=== PATIENT | male | born 1985 | race Caucasian/White ===

== ENCOUNTER 2018-01-27 16:59 | Outpatient (CLI) | payer BC | END 2018-01-27 17:00 | disposition home or self-care (01) | LOC: BICRAD 16:59 | PROVIDERS: ATTEND Family Medicine | DX: R53.83 Other fatigue (principal); R10.30 Lower abdominal pain, unspecified; R30.0 Dysuria | CPT/HCPCS: 71046; 72100; 74018 ==

== ENCOUNTER 2018-02-18 13:10 | Outpatient (CLI) | payer BC | END 2018-02-18 13:11 | disposition home or self-care (01) | LOC: BICULT 13:10 | PROVIDERS: ATTEND Family Medicine | DX: R10.30 Lower abdominal pain, unspecified (principal); R30.0 Dysuria; R53.83 Other fatigue | CPT/HCPCS: 76770; 76870; 93976 ==